=== PATIENT | female | born 2000 | race Caucasian/White ===

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

== ENCOUNTER 2021-03-20 15:45 | Emergency (ER) | payer OTHER ==
[2021-03-20 15:51] VITALS: RESP 16; TEMP 98.1
[2021-03-20 16:20] LABS: Basophils % (A) 0 %; Eosinophils # (A) 0.1 k/uL (0-0.7); Eosinophils % (A) 1 %; HCT 37.4 % (34.0-46.0); HGB 12.2 gm/dL (11.4-16.0); Lymphocytes # (A) 1.3 k/uL (1.0-4.8); Lymphocytes % (A) 22 %; MCHC 32.7 g/dL (31.0-37.0); MCV 76.2 fL (80.0-100.0); Mean Platelet Volume 7.4; Monocytes # (A) 0.4 k/uL (0-1.0); Monocytes % (A) 6 %; Neutrophils # (A) 4.1 k/uL (1.3-7.7); Neutrophils % (A) 69 %; Platelet Count 283 k/uL (150-450); RDW 14.4 % (11.5-15.5); WBC 5.9 k/uL (4.0-11.0)
[2021-03-20 16:29] LABS: Partial Thromboplastin Time 26.1 sec (22.0-30.0); Prothrombin Time 10.8 sec (9.0-12.0)
[2021-03-20 16:30] LABS: ALT 26 U/L (4-34); AST 31 U/L (14-36); African American GFR (CKD) >90 (>60 ml/min/1.73 sqM); Albumin 4.7 g/dL (3.5-5.0); Alcohol <10 mg/dL; Alkaline Phosphatase 82 U/L (38-126); Anion Gap 12 mmol/L; Blood Urea Nitrogen 9 mg/dL (7-17); Calcium 9.3 mg/dL (8.4-10.2); Carbon Dioxide 23 mmol/L (22-30); Chloride 103 mmol/L (98-107); Glucose 93 mg/dL (74-99); Non-African American GFR(CKD) >90 (>60 ml/min/1.73 sqM); Potassium 4.3 mmol/L (3.5-5.1); Sodium 138 mmol/L (137-145); Total Bilirubin 0.7 mg/dL (0.2-1.3); Total Protein 8.2 g/dL (6.3-8.2)
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
[2021-03-20] MEDS ORDERED: KETOROLAC 15 MG/ML 1 ML VIAL IVP STA (17:18)
[2021-03-20 17:29] VITALS: BP 123/82; PULSE 60
== END 2021-03-20 17:33 | disposition home or self-care (01) ==
LOC: EC 15:45
DX: S29.012A Strain of muscle and tendon of back wall of thorax, initial encounter (principal); V59.9XXA Occupant (driver) (passenger) of pick-up truck or van injured in unspecified traffic accident, initial encounter
CPT/HCPCS: 93005; 86900; 86901; 80053; 84484; 85025; 85610; 85730; 86850; 80320; 71045; 72125; 70450; 71260; 74177; 99284; 96374; J1885; Q9967; 36415

== ENCOUNTER 2023-11-14 22:07 | Emergency (ER) | payer MEDICARE ==
[~2023-11-14 22:07] MED LIST: DIPH,PERTUS(ACELL)TETVAC-LF 0.5 ML VIAL IM ONE
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
== END 2023-11-15 01:40 | disposition home or self-care (01) ==
LOC: EC 22:07
DX: V89.2XXA Person injured in unspecified motor-vehicle accident, traffic, initial encounter
CPT/HCPCS: 71045; 72170; 76805; 90471; 90715; 99284

== ENCOUNTER 2024-02-26 05:47 | Inpatient (IN) | payer MEDICARE, OTHER ==
[2024-02-26] MEDS ORDERED: TRANEXAMIC 1,000 MG/100ML-NACL 1,000 MG in EMPTY BAG 1 BAG IV PRN (08:20)
[2024-02-26] MEDS ORDERED: miSOPROStoL 200 MCG TAB PO PRN (08:20)
[2024-02-26] MEDS ORDERED: OXYTOCIN 10 UNIT/ML 1 ML VIAL IM PRN (08:20)
[2024-02-26] MEDS ORDERED: TERBUTALINE 1 MG/ML VIAL SQ PRN (08:20)
[2024-02-26] MEDS ORDERED: miSOPROStoL 200 MCG TAB RECTAL PRN (08:20)
[2024-02-26] MEDS ORDERED: METHYLERGONOVINE 0.2 MG/ML 1 ML AMP IM PRN (08:20)
[2024-02-26] MEDS ORDERED: CARBOPROST TROMETHAMINE 250 MCG/ML 1 ML AMP IM PRN (08:20)
[2024-02-26] MEDS ORDERED: OXYTOCIN 30 UNITS/500 ML NS 30 UNIT in SALINE 1 500ML.BAG IV SCH (08:30)
[2024-02-26] MEDS: LACTATED RINGERS 1,000 ML IV SCH (09:21)
[2024-02-26] MEDS: AMPICILLIN 2,000 MG in SODIUM CHLORIDE 0.9% 100 ML IVPB STA (09:22)
[2024-02-26 09:37] LABS: Basophils % (A) 0 %; Eosinophils % (A) 0 %; HCT 34.5 % (34.0-46.0); HGB 11.5 gm/dL (11.4-16.0); Lymphocytes # (A) 1.6 k/uL (1.0-4.8); Lymphocytes % (A) 10 %; MCH 27.9 pg (25.0-35.0); MCHC 33.3 g/dL (31.0-37.0); MCV 83.6 fL (80.0-100.0); Mean Platelet Volume 8.8; Monocytes # (A) 0.7 k/uL (0-1.0); Monocytes % (A) 4 %; Neutrophils # (A) 14.8 k/uL (1.3-7.7); Neutrophils % (A) 86 %; Platelet Count 265 k/uL (150-450); RBC 4.13 m/uL (3.80-5.40); RDW 14.4 % (11.5-15.5); WBC 17.3 k/uL (3.8-10.6)
[2024-02-26] MEDS: NALBUPHINE 10 MG/ML (10 ML MDV) IV PRN (09:48)
[2024-02-26] MEDS: AMPICILLIN 1,000 MG in SODIUM CHLORIDE 0.9% 50 ML IVPB SCH (13:38)
[2024-02-26] MEDS: OXYTOCIN 30 UNITS/500 ML NS 30 UNIT in SALINE 1 500ML.BAG IV SCH (17:11)
--- NOTE | 2024-02-26 17:21 | P.HPOB ---
History of Present Illness H&P Date: 02/26/24 Chief Complaint: labor 23 year old at 41 weeks presented complaining of contractions. HEr cervix changed to 4cm in triage. She was suzanne irregularly and heart tones category 1. Review of Systems All systems: negative Constitutional: Denies chills, Denies fever Eyes: denies blurred vision, denies pain Ears, nose, mouth and throat: Denies headache, Denies sore throat Cardiovascular: Denies chest pain, Denies shortness of breath Respiratory: Denies cough Gastrointestinal: Denies abdominal pain, Denies diarrhea, Denies nausea, Denies vomiting Genitourinary: Denies dysuria, Denies hematuria Musculoskeletal: Denies myalgias Integumentary: Denies pruritus, Denies rash Neurological: Denies numbness, Denies weakness Psychiatric: Denies anxiety, Denies depression Endocrine: Denies fatigue, Denies weight change Past Medical History Past Medical History: No Reported History History of Any Multi-Drug Resistant Organisms: None Reported Past Surgical History: No Surgical Hx Reported Past Anesthesia/Blood Transfusion Reactions: No Reported Reaction Past Psychological History: No Psychological Hx Reported Smoking Status: Never smoker Past Alcohol Use History: None Reported Past Drug Use History: None Reported - Past Family History Mother Family Medical History: No Reported History Medications and Allergies Home Medications Medication Instructions Recorded Confirmed Type Ferrous Sulfate [Iron] 325 mg PO DAILY 02/25/24 02/26/24 History Omeprazole 20 mg PO DAILY 02/25/24 02/26/24 History Vit No.179/Iron/Folic 1 tab PO DAILY 02/25/24 02/26/24 History [ Tablet] Allergies Allergy/AdvReac Type Severity Reaction Status Date / Time No Known Allergies Allergy Verified 03/20/21 16:49 Exam Osteopathic Statement: *. No significant issues noted on an osteopathic structural exam other than those noted in the History and Physical/Consult. Vital Signs Temp Pulse Resp BP Pulse Ox 02/26/24 08:57 96.7 F L 66 16 121/80 02/26/24 05:59 97.8 F 68 16 124/65 99 Intake and Output 02/26/24 02/26/24 02/26/24 06:59 14:59 22:59 Intake Total 1000 Balance 1000 Intake: IV 1000 Other: # Voids 1 Weight 98.883 kg 98.883 kg Heart: Regular rate and rhythm Lungs: Clear to auscultation bilaterally Abdomen: Soft, nontender Extremities: Negative Homans sign Results Result Diagrams: 02/26/24 09:15 Abnormal Lab Results - Last 24 Hours (Table) 02/26/24 Range/Units 09:15 WBC 17.3 H (3.8-10.6) k/uL Neutrophils # 14.8 H (1.3-7.7) k/uL Assessment and Plan (1) Normal labor Current Visit: Yes Status: Acute Code(s): O80 - ENCOUNTER FOR FULL-TERM UNCOMPLICATED DELIVERY; Z37.9 - OUTCOME OF DELIVERY, UNSPECIFIED SNOMED Code(s): 52235011 Plan: 1. admit to [facility] 2. expectant management 3. antibiotics for GBS ppx 4. anticipate normal vaginal delivery
[2024-02-26 23:23] LABS: Urine Alcohol Negative (Negative); Urine Barbiturate Negative (Negative); Urine Cocaine Negative (Negative); Urine Methadone Negative (Negative); Urine Opiates Negative (Negative); Urine Phencyclidine Negative (Negative)
[2024-02-26] MEDS: LIDOCAINE 0.5% (PF) 5 MG/ML (50 ML SDV) SQ PRN (23:56)
[2024-02-27] MEDS ORDERED: SIMETHICONE 80 MG CHEWABLE PO PRN (00:15)
[2024-02-27] MEDS ORDERED: ZOLPIDEM 5 MG TAB PO PRN (00:15)
[2024-02-27] MEDS ORDERED: diphenhydrAMINE 50 MG/ML 1 ML VIAL IVP PRN ×2 (00:15)
[2024-02-27] MEDS ORDERED: LANOLIN CREAM 1 GM TUBE TOPICAL PRN (00:15)
[2024-02-27] MEDS ORDERED: diphenhydrAMINE 25 MG CAP PO PRN (00:15)
[2024-02-27] MEDS ORDERED: diphenhydrAMINE 50 MG CAP PO PRN (00:15)
[2024-02-27] MEDS ORDERED: BENZOCAINE/MENTHOL SPRAY 1 GM/SPRAY AEROSOL TOPICAL PRN (00:15)
[2024-02-27] MEDS ORDERED: HYDROCORTISONE 2.5% RECTAL CREAM 30 GM TUBE RECTAL PRN (00:15)
[2024-02-27] MEDS: ACETAMINOPHEN TAB 500 MG TAB PO PRN (00:30)
[2024-02-27] MEDS: IBUPROFEN 800 MG TAB PO PRN (15:47)
[2024-02-27] MEDS: SENNOSIDES-DOCUSATE SODIUM 1 EACH TAB PO SCH (15:54)
[2024-02-28 06:46] LABS: Basophils # (A) 0.1 k/uL (0-0.2); Basophils % (A) 1 %; Eosinophils # (A) 0.1 k/uL (0-0.7); Eosinophils % (A) 1 %; HCT 29.2 % (34.0-46.0); Hypochromasia Slight; Lymphocytes # (A) 3.6 k/uL (1.0-4.8); Lymphocytes % (A) 33 %; MCH 28.9 pg (25.0-35.0); MCHC 33.9 g/dL (31.0-37.0); MCV 85.2 fL (80.0-100.0); Monocytes # (A) 0.5 k/uL (0-1.0); Monocytes % (A) 5 %; Neutrophils # (A) 6.6 k/uL (1.3-7.7); Neutrophils % (A) 60 %; Platelet Count 225 k/uL (150-450); RBC 3.43 m/uL (3.80-5.40); RDW 14.9 % (11.5-15.5); WBC 10.9 k/uL (3.8-10.6)
[2024-02-28 06:47] LABS: HGB 9.9 gm/dL (11.4-16.0)
[2024-02-28 07:31] VITALS: BP 128/80; PULSE 73; RESP 16; TEMP 98.4
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
--- NOTE | 2024-02-28 08:40 | P.DS ---
Providers Date of admission: 02/26/24 08:39 Expected date of discharge: 02/28/24 Attending physician: Jessica Morelos Primary care physician: Stated None - Discharge Diagnosis(es) (1) Normal labor Current Visit: Yes Status: Resolved (2) Status post normal delivery Current Visit: Yes Status: Acute Hospital Course: Patient presented at 41 weeks in labor. She underwent a normal vaginal delivery with Pitocin augmentation. course has been uneventful. She denies nausea, vomiting, chest pain, shortness of breath or calf pain. She'll be discharged home day #1 in stable condition to follow-up with her own physician in 6 weeks. Plan - Discharge Summary New Discharge Prescriptions: New RX: Ibuprofen [Motrin] 800 mg PO Q8HR PRN #30 tab PRN Reason: Moderate Pain (Scale 4 To 6) No Action Vit No.179/Iron/Folic [ Tablet] 1 tab PO DAILY RX: Omeprazole 20 mg PO DAILY Ferrous Sulfate [Iron] 325 mg PO DAILY Discharge Medication List Ferrous Sulfate [Iron] 325 mg PO DAILY 02/25/24 [History] Vit No.179/Iron/Folic [ Tablet] 1 tab PO DAILY 02/25/24 [History] RX: Omeprazole 20 mg PO DAILY 02/25/24 [History] RX: Ibuprofen [Motrin] 800 mg PO Q8HR PRN #30 tab 02/28/24 [Rx] Follow up Appointment(s)/Referral(s): Jessica Morelos DO [Doctor of Osteopathic Medicine] - 6 Weeks Discharge Disposition: HOME SELF-CARE
== END 2024-02-28 13:00 | disposition home or self-care (01) | DRG 560 ==
LOC: FBPOP 05:47 → 4FBP 08:39
PROVIDERS: ADMIT Obstetrics & Gynecology; ATTEND Obstetrics & Gynecology
PROC: 10E0XZZ Delivery of Products of Conception, External Approach (ICD-10-PCS; principal; 2024-02-28)
PROC: 0KQM0ZZ Repair Perineum Muscle, Open Approach (ICD-10-PCS; 2024-02-28)
DX: O48.0 Post-term pregnancy (principal); Z37.0 Single live birth; O70.1 Second degree perineal laceration during delivery; Z3A.41 41 weeks gestation of pregnancy
CPT/HCPCS: 59025; 80306; 85025; 86850; 86900; 86901; 99213